=== PATIENT | male | born 1955 | race Caucasian/White ===

== ENCOUNTER 2022-06-13 04:09 | Day surgery (SDC) | payer BC, OTHER ==
[2022-06-10 15:03] VITALS: BMI 25.7
[2022-06-13 09:26] VITALS: TEMP 98
[2022-06-13 09:41] VITALS: RESP 19
[2022-06-13 09:55] VITALS: BP 126/77; PULSE 59
== END 2022-06-13 10:01 | disposition home or self-care (01) ==
LOC: JASU-ENDO 04:09
PROVIDERS: ATTEND Internal Medicine Gastroenterology
PROC: 0DBL8ZX Excision of Transverse Colon, Via Natural or Artificial Opening Endoscopic, Diagnostic (ICD-10-PCS; 2022-06-13)
PROC: 0DBN8ZX Excision of Sigmoid Colon, Via Natural or Artificial Opening Endoscopic, Diagnostic (ICD-10-PCS; principal; 2022-06-13 08:45)
DX: Z12.11 Encounter for screening for malignant neoplasm of colon (principal); D12.3 Benign neoplasm of transverse colon; K63.5 Polyp of colon; K57.30 Diverticulosis of large intestine without perforation or abscess without bleeding; K64.8 Other hemorrhoids; Z86.010 Personal history of colon polyps
CPT/HCPCS: 88305-TC

== ENCOUNTER 2024-08-31 02:53 | Emergency (ER) | payer OTHER ==
[2024-08-31 02:57] VITALS: TEMP 97.6; BMI 24.4
[2024-08-31] MEDS ORDERED: TRANEXAMIC ACID 1000 MG/10 ML VIAL ONE (03:04)
[2024-08-31] MEDS: TRANEXAMIC ACID 1000 MG/10 ML VIAL IVPUSH ONE (03:40)
[2024-08-31] MEDS: OXYMETAZOLINE 0.05% NASAL SOLUTION 15 ML BOTTLE NS ONE (03:42)
[2024-08-31 04:51] VITALS: BP 129/81; PULSE 75; RESP 19
== END 2024-08-31 05:23 | disposition home or self-care (01) ==
LOC: JER 02:53
DX: R04.0 Epistaxis (principal)
CPT/HCPCS: 99283-25

== ENCOUNTER 2024-09-02 11:31 | Emergency (ER) | payer OTHER ==
[2024-09-02 11:54] VITALS: BP 151/82; PULSE 85; RESP 18; TEMP 98; BMI 24.4
[2024-09-02] MEDS ORDERED: TRANEXAMIC ACID 1000 MG/10 ML VIAL IVPUSH ONE (12:09)
[2024-09-02] MEDS ORDERED: TRANEXAMIC ACID 1000 MG/10 ML VIAL ONE (12:28)
[2024-09-02] MEDS: OXYMETAZOLINE 0.05% NASAL SOLUTION 15 ML BOTTLE NS ONE (14:10)
== END 2024-09-02 15:04 | disposition home or self-care (01) ==
LOC: JER 11:31
DX: R04.0 Epistaxis (principal)
CPT/HCPCS: 99283-25